=== PATIENT | male | born 1935 | race Caucasian/White ===

== ENCOUNTER 2018-04-24 09:21 | Day surgery (SDC) | payer MEDICARE, OTHER, SELFPAY ==
--- NOTE | 2018-04-19 20:38 | PM.PREOP ---
Pre-operative Note Interval Note Pre-op Check: Yes History & Physical exam performed today by Physician Changes: No
[2018-04-24 09:46] VITALS: BMI 30.2
[2018-04-24 09:52] VITALS: BP 155/71; PULSE 74; RESP 15; TEMP 36.3; O2SAT 94
[2018-04-24] MEDS: PROPARACAINE 0.5% OPHTH SOL 2 DROPS EYE-OP (09:59)
[2018-04-24] MEDS: CATARACT EYE COMPOUND (10 DROPS/SYRINGE) 3 DROPS EYE-OP (09:59)
--- NOTE | 2018-04-24 10:12 | SUR.OPER ---
Supine on eye stretcher, head on extension cradle secured with tape. Arms tucked at sides with blanket. Pillow under knees.
--- NOTE | 2018-04-24 10:41 | PM.OP.1 ---
Operative Date/Time/Diagnoses Date of procedure: 04/24/18 Time of procedure: 11:00 Procedure & Clinicians Procedure: Preoperative diagnoses: 1. Left nuclear sclerotic and cortical cataract. 2. 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 3. Astigmatism which he elects to correct with a toric intraocular lens implant. Postoperative diagnoses: 1. Cataract removed by phacoemulsification with placement of posterior chamber intraocular lens and use of Malyugin ring. Procedure: Phacoemulsification with toric posterior chamber intraocular lens implant and use of Malyugin ring. Surgeon: Rhoda Valdez MD Complications: None Specimen: None Implant:[id number]. [place] 143 degrees. Blood loss: None Anesthesia: Retrobulbar with monitored standby Description of procedure: Patient presents with a complaint of decreased vision due to cataract which is affecting activities of daily living. The patient wants surgery to improve vision. The iris is floppy due to use of prostate like medication. To improve surgical safety a Malyugin ring iris pupillary device is needed. The patient was taken to the operating room and given topical proparacaine solution. Indelible ink alvarado were placed at the 90 and 180 degree meridian. Was placed on the operating room table and given IV sedation. A retrobulbar block insert consisting of 6 cc of 2% xylocaine without epinephrine mixed half and half with 0.5% Marcaine with 1 cc of hyaluronidase added is placed between the medial and lateral 1/3 of the inferior orbital rim. Lid akinesia is obtain with 1% xylocaine with epinephrine infiltrated along the lid margin. The eye is manually massaged for 30 sec, prepped using Betadine solution, and draped in the usual sterile fashion. Temporal approach was made, a 1 mm side-port incision was made 90? from the proposed clear corneal incision position. Phenylephrine 1.5% mixed with 1% xylocaine 0.2 cc was placed into the anterior chamber. Viscoat followed by Healon was then placed. A 2.6 mm clear incision with a 2.6 mm blade was placed. A 7.0 mm malunion Malyugin ring was inspected, placed into the circuit design engineer and opened in the anterior chamber. The iris was sequentially hooked in all 4 quadrants. It was then centered to improve iris size and visibility. A 360 degree capsulorrhexis style capsulotomy was then performed with a cystitome needle on a Healon aided by the enlarged pupil. Hydrodelineation and hydrodissection were performed. The phacoemulsification unit is introduced, and sculpting used to groove the central lens. It is then removed in chopping mode. Epi nucleus is removed with epinuclear mode and irrigation aspiration was used to remove the peripheral cortex. The posterior capsule is polished. The toric intraocular lens is selected, inspected, power confirmed, and placed in the posterior chamber at the 143 degree meridian. Viscoelastic was placed into the anterior chamber and the Malyugin ring disinserted from each quadrant of the iris. It was then placed back into its circuit design engineer and removed in total from the eye. The pupil was constricted with Miostat.. The wound was stromally hydrated and tested for leaks, there was none and it was left sutureless. Vigamox 0.1 cc was placed into the anterior chamber. Kenalog 0.2 cc was placed in the superior subconjunctival space. A drop of antibiotic and was placed and the eye was patched and shielded. The patient was stable and returned to the recovery room in excellent condition. Dictated by: Rhoda Valdez MD Copy to: [facility]
--- NOTE | 2018-04-24 10:47 | P.OP_ITS ---
Operative Date/Time/Diagnoses Date of procedure: 04/24/18 Time of procedure: 11:00 Procedure & Clinicians Procedure: Preoperative diagnoses: 1. Left nuclear sclerotic and cortical cataract. 2. 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 3. Astigmatism which he elects to correct with a toric intraocular lens implant. Postoperative diagnoses: 1. Cataract removed by phacoemulsification with placement of posterior chamber intraocular lens and use of Malyugin ring. Procedure: Phacoemulsification with toric posterior chamber intraocular lens implant and use of Malyugin ring. Surgeon: Rhoda Valdez MD Complications: None Specimen: None Implant:[id number]+20.0. [place] 143 degrees. Blood loss: None Anesthesia: Retrobulbar with monitored standby Description of procedure: Patient presents with a complaint of decreased vision due to cataract which is affecting activities of daily living. The patient wants surgery to improve vision. The iris is floppy due to use of prostate like medication. To improve surgical safety a Malyugin ring iris pupillary device is needed. The patient was taken to the operating room and given topical proparacaine solution. Indelible ink alvarado were placed at the 90 and 180 degree meridian. Was placed on the operating room table and given IV sedation. A retrobulbar block insert consisting of 6 cc of 2% xylocaine without epinephrine mixed half and half with 0.5% Marcaine with 1 cc of hyaluronidase added is placed between the medial and lateral 1/3 of the inferior orbital rim. Lid akinesia is obtain with 1% xylocaine with epinephrine infiltrated along the lid margin. The eye is manually massaged for 30 sec, prepped using Betadine solution, and draped in the usual sterile fashion. Temporal approach was made, a 1 mm side-port incision was made 90? from the proposed clear corneal incision position. Phenylephrine 1.5% mixed with 1% xylocaine 0.2 cc was placed into the anterior chamber. Viscoat followed by Healon was then placed. A 2.6 mm clear incision with a 2.6 mm blade was placed. A 7.0 mm malunion Malyugin ring was inspected, placed into the keysmith and opened in the anterior chamber. The iris was sequentially hooked in all 4 quadrants. It was then centered to improve iris size and visibility. A 360 degree capsulorrhexis style capsulotomy was then performed with a cystitome needle on a Healon aided by the enlarged pupil. Hydrodelineation and hydrodissection were performed. The phacoemulsification unit is introduced, and sculpting used to groove the central lens. It is then removed in chopping mode. Epi nucleus is removed with epinuclear mode and irrigation aspiration was used to remove the peripheral cortex. The posterior capsule is polished. The toric intraocular lens is selected, inspected, power confirmed, and placed in the posterior chamber at the 143 degree meridian. Viscoelastic was placed into the anterior chamber and the Malyugin ring disinserted from each quadrant of the iris. It was then placed back into its keysmith and removed in total from the eye. The pupil was constricted with Miostat.. The wound was stromally hydrated and tested for leaks, there was none and it was left sutureless. Vigamox 0.1 cc was placed into the anterior chamber. Kenalog 0.2 cc was placed in the superior subconjunctival space. A drop of antibiotic and was placed and the eye was patched and shielded. The patient was stable and returned to the recovery room in excellent condition. Dictated by: Rhoda Valdez MD Copy to: [facility]
[2018-04-24] MEDS: CHONDROIDTIN/SOD HYALURONATE 1.05 ML SYRINGE INTRAOCULA (11:25)
[2018-04-24] MEDS: HYALURONATE SODIUM 10 MG/ML SYRINGE INJ (11:25)
[2018-04-24] MEDS: LIDOCAINE 1% W/EPI INJ 20 ML INJ (11:26)
[2018-04-24] MEDS: MOXIFLOXACIN OPHTH DROPS 3 ML BOTTLE 2 DROPS INJ (11:27)
[2018-04-24] MEDS: BALANCED SALT IRRIG SOLN NO.2 500 ML, EPINEPHrine 1 MG IRR (11:28)
[2018-04-24] MEDS: NEOMYCIN/POLY/DEX OPHTH OINT 1 APPLIC EYE-LEFT (11:29)
[2018-04-24] MEDS: OFLOXACIN 0.3% OPHTH 5 ML 2 DROPS EYE-LEFT (11:30)
[2018-04-24] MEDS: PHENYLEPHRINE/LIDOCAINE VIAL (OR) 0.2 ML EYE-OP (11:30)
[2018-04-24] MEDS: TRIAMCINOLONE 50 MG/5 ML VIAL INJ (11:31)
[2018-04-24] MEDS: LIDOCAINE 2% 4 ML, BUPIVACAINE 0.5% (PF) 4 ML, HYALURONIDASE 150 UNIT INJ (11:33)
[2018-04-24] MEDS: BALANCED SALT IRRIG SOLN NO.2 15 ML IRRIG.SOLN IRR (11:35)
[2018-04-24 12:01] VITALS: BP 144/72; PULSE 64; RESP 20; TEMP 36.3; O2SAT 94
== END 2018-04-24 12:10 | disposition home or self-care (01) ==
LOC: OR 09:23
PROVIDERS: Family Provider Internal Medicine; PCP Internal Medicine; Visit Provider Ophthalmology
PROC: (CPT 66982; principal; 2018-04-24 11:15)
DX: H25.12 Age-related nuclear cataract, left eye (principal); H21.81 Floppy iris syndrome; H52.202 Unspecified astigmatism, left eye
CPT/HCPCS: 66982; J0171; J2250; J2704; J3010; J3301; J3470; V2787

== ENCOUNTER 2018-05-08 07:52 | Day surgery (SDC) | payer MEDICARE, OTHER, SELFPAY ==
--- NOTE | 2018-05-02 18:55 | PM.PREOP ---
Pre-operative Note Interval Note History & Physical reviewed/Exam performed by Physician: Yes Changes to H&P: No
--- NOTE | 2018-05-08 08:08 | PM.OP.1 ---
Operative Date/Time/Diagnoses Date of procedure: 05/08/18 Time of procedure: 08:45 Procedure & Clinicians Procedure: Preoperative diagnoses:1. Right nuclear sclerotic cataract2. Astigmatism which is to be corrected with a toric intraocular lens implant. Sympathomemtics with need for Malyguin ring. Operative procedure: 1. Complex Cataract removal with phacoemulsification with toric posterior chamber intraocular lens implant and use of Malyugin ring.Surgeon: Rhoda Valdez MD Complications: None Specimen: NoneImplant: [id number] [place] 021.Blood loss: None Anesthesia: Retrobulbar with monitored standby Description of procedure: Patient presents with a complaint of decreased vision due to cataract which is affecting activities of daily living. The patient wants surgery to improve vision and astigmatism. Due to the use of prostate medication a floppy iris syndrome is present and he will need a Malygion ring for safety. The patient was taken to the operating room and proparacaine drops placed. Indelible ink alvarado were placed at the 90 and 180 degree meridian. The patient was placed on the operating room table and given IV sedation. A retrobulbar block insert consisting of 6 cc of 2% xylocaine without epinephrine mixed half and half with 0.5% Marcaine with 1 cc of hyaluronidase added is placed between the medial and lateral 1/3 of the inferior orbital rim. Lid akinesia is obtain with 1% xylocaine with epinephrine infiltrated along the lid margin. The eye is manually massaged for 30 sec, prepped using Betadine solution, and draped in the usual sterile fashion.Temporal approach was made, a 1 mm side-port incision was made 90? from the proposed corneal wound. Phenylephrine 1.5% mixed with 1% xylocaine 0.2 cc was placed into the anterior chamber. Viscoat followed by Healon was then placed. A 2.6 mm clear incision with a 2.6 mm blade was placed at the 170 degree meridian. A 7.0 mm Malyguin ring was inspected, placed in to the inserting device, placed into the anterior chamber, and then sequentially hooked and all 4 quadrants of the iris. A 360 degree capsulorrhexis style capsulotomy was then performed with a cystitome needle on a Healon aided by the capsular ring. Hydrodelineation and hydrodissection were performed. The phacoemulsification unit is introduced, and sculpting notice used to groove the central lens. It is then removed in chopping mode. Epi nucleus is removed with epinuclear mode and irrigation aspiration was used to remove the peripheral cortex. The posterior capsule is polished. The intraocular lens is selected, inspected, power confirmed, and placed in the posterior chamber at the desired meridian of 21 degrees. The pupil was not constricted. The wound was stromally hydrated and tested for leaks, there was none and it was left sutureless. Vigamox 0.1 cc was placed into the anterior chamber. Kenalog 0.2 cc was placed in the superior subconjunctival space. A drop of antibiotic and was placed and the eye was patched and shielded. The patient was stable and returned to the recovery room in excellent condition.Dictated by: LINA Burgosopy to: [facility]
[2018-05-08] MEDS: PROPARACAINE 0.5% OPHTH SOL 2 DROPS EYE-OP (08:12)
[2018-05-08 08:13] VITALS: BP 160/70; PULSE 63; RESP 15; TEMP 36.1; O2SAT 96; BMI 30.1
[2018-05-08] MEDS: CATARACT EYE COMPOUND (10 DROPS/SYRINGE) 3 DROPS EYE-OP (08:14)
[2018-05-08] MEDS: BALANCED SALT IRRIG SOLN NO.2 500 ML, EPINEPHrine 1 MG IRR (09:14)
[2018-05-08] MEDS: MOXIFLOXACIN OPHTH DROPS 3 ML BOTTLE 2 DROPS INJ (09:15)
[2018-05-08] MEDS: PHENYLEPHRINE/LIDOCAINE VIAL (OR) 0.2 ML EYE-OP (09:15)
[2018-05-08] MEDS: HYALURONATE SODIUM 10 MG/ML SYRINGE INJ ×2 (09:16)
[2018-05-08] MEDS: TRIAMCINOLONE 50 MG/5 ML VIAL INJ (09:16)
[2018-05-08] MEDS: CHONDROIDTIN/SOD HYALURONATE 1.05 ML SYRINGE INTRAOCULA (09:16)
[2018-05-08] MEDS: BALANCED SALT IRRIG SOLN NO.2 15 ML IRR (09:17)
[2018-05-08] MEDS: OFLOXACIN 0.3% OPHTH 5 ML 2 DROPS EYE-RIGHT (09:18)
[2018-05-08] MEDS: NEOMYCIN/POLY/DEX OPHTH OINT 1 APPLIC EYE-RIGHT (09:18)
[2018-05-08] MEDS: LIDOCAINE 2% 4 ML, BUPIVACAINE 0.5% (PF) 4 ML, HYALURONIDASE 150 UNIT INJ (09:20)
[2018-05-08 09:40] VITALS: BP 151/78; PULSE 64; RESP 20; TEMP 36.5; O2SAT 94
== END 2018-05-08 09:55 | disposition home or self-care (01) ==
LOC: OR 07:55
PROVIDERS: PCP Internal Medicine; Visit Provider Ophthalmology
PROC: (CPT 66982; principal; 2018-05-08 08:45)
DX: H25.11 Age-related nuclear cataract, right eye (principal); I10 Essential (primary) hypertension; H52.201 Unspecified astigmatism, right eye
CPT/HCPCS: 66982; J0171; J2704; J3301; J3470; V2787

== ENCOUNTER → 2023-07-03 15:08 | Outpatient (CLI) | payer MEDICARE, OTHER, SELFPAY ==
--- NOTE | 2023-07-03 15:09 | DI.US.S_ITS ---
PROCEDURE: US PERIPH VENOUS LOW EXTREM RT INDICATIONS: Right lower extremity swelling TECHNIQUE: Real-time imaging, as well as color and pulse Doppler interrogation, were performed of the lower extremity deep veins from the inguinal ligament to the popliteal fossa, with documentation of the visualized calf veins. COMPARISON: None. FINDINGS: The common femoral, femoral, popliteal, and the visualized calf veins are normally compressible, and free of intraluminal thrombus. Color and pulse Doppler demonstrate normal phasic intraluminal flow. There is normal augmentation response to distal compression maneuver. 3.2 x 1.0 x 1.3 centimeter complex popliteal cyst. IMPRESSION: No findings of lower extremity deep venous thrombosis. Dictated by: Nita Douglass MD, PhD on 07/03/2023 at 16:32 Approved by: Nita Douglass MD, PhD on 07/03/2023 at 16:32
== END ==
PROVIDERS: PCP Internal Medicine; Referring Provider Physician Assistant; Visit Provider Physician Assistant
DX: M79.89 Other specified soft tissue disorders (principal); M71.21 Synovial cyst of popliteal space [Baker], right knee
CPT/HCPCS: 93971